=== PATIENT | female | born 1990 | race Caucasian/White ===

== ENCOUNTER 2017-10-21 13:57 | Emergency (ER) | payer BC ==
[~2017-10-21] VITALS: Ht 157.5 cm; Wt 163.3 kg
[~2017-10-21 13:57] MED LIST: DEPO-PROVERA; IBUPROFEN 800800 M1 PO; LIDOCAINE VISC100 M1 MM; NORCO 5-325 TA1 EACH PO; PENICILLIN V P500 MG; PHENERGAN-CODE120 ML PO; PROAIR HFA8.5 GM PO; TESSALON PERLE100 MG PO; TRILEPTAL600 MG; ZOFRAN ODT4 MG PO; birth control PO
[2017-10-21] MEDS ORDERED: ZPAK PO (14:26)
[2017-10-21] MEDS ORDERED: TESSALON PERLE100 MG PO (14:26)
[2017-10-21] MEDS ORDERED: PROAIR HFA8.5 GM INH (14:26)
[2017-10-21 14:40] VITALS: BP 112/59
[2017-10-22] MEDS ORDERED: PREDNISONE 20 M20 M1 PO (22:45)
[2017-10-22] MEDS ORDERED: ZOFRAN4 MG PO (23:16)
== END 2017-10-21 14:42 | disposition home or self-care (01) ==
LOC: M.ERS 13:57
DX: J18.8 Other pneumonia, unspecified organism (principal); F31.9 Bipolar disorder, unspecified; F90.9 Attention-deficit hyperactivity disorder, unspecified type; J45.909 Unspecified asthma, uncomplicated; F17.200 Nicotine dependence, unspecified, uncomplicated

== ENCOUNTER 2017-10-22 21:05 | Emergency (ER) | payer BC ==
[~2017-10-22] VITALS: Ht 157.5 cm; Wt 90.7 kg
[~2017-10-22 21:05] MED LIST changes: +PROAIR HFA8.5 GM INH; +ZPAK PO
[2017-10-22 22:03] LABS: ABSOLUTE BASOPHILS 0.1 thou/uL (0.0-0.2); ABSOLUTE EOSINOPHILS 0.3 thou/uL (0.0-0.7); ABSOLUTE LYMPHOCYTES 2.7 thou/uL (0.8-5.3); ABSOLUTE MONOCYTES 0.8 thou/uL (0.0-1.2); ABSOLUTE NEUTROPHILS 3.4 thou/uL (1.6-8.1); BASOPHILS 0.8 %; EOSINOPHILS 3.7 %; HEMATOCRIT 45.4 % (37.0-47.0); HEMOGLOBIN 15.5 gm/dL (12.0-15.0); LYMPHOCYTES 37.4 %; MCH 31.8 pg (26.0-34.0); MCHC 34.1 g/dL (28.0-37.0); MCV 93.2 fL (80.0-100.0); MONOCYTES 11.6 %; MPV 7.7 fl. (7.2-11.1); NUCLEATED RBCS 0 /100WBC; PLATELET COUNT* 193 thou/uL (150-400); POLYS 46.5 %; RBC 4.87 mil/uL (4.20-5.00); WBC 7.3 thou/uL (4.0-11.0)
[2017-10-22 22:09] LABS: CALCIUM 8.9 mg/dL (8.5-10.1); CREATININE 0.8 mg/dL (0.6-1.3); POTASSIUM 4.6 mmol/L (3.5-5.1)
[2017-10-22 22:13] LABS: ALBUMIN 3.4 g/dL (3.4-5.0); TOTAL BILIRUBIN 0.2 mg/dL (<0.1-1.0); TOTAL PROTEIN 7.3 g/dL (6.4-8.2)
[2017-10-22 22:36] LABS: INFLUENZA A ANTIGEN None Detected (None Detect)
[2017-10-22] MEDS ORDERED: PREDNISONE 20 M20 M1 PO (22:45)
[2017-10-22] MEDS ORDERED: ZOFRAN4 MG PO (23:16)
[2017-10-22 23:24] VITALS: BP 129/59
== END 2017-10-22 23:27 | disposition home or self-care (01) ==
LOC: M.ERS 21:05
PROVIDERS: Nurse Practitioner Family
DX: J10.1 Influenza due to other identified influenza virus with other respiratory manifestations (principal); J45.909 Unspecified asthma, uncomplicated; F31.9 Bipolar disorder, unspecified; F90.9 Attention-deficit hyperactivity disorder, unspecified type

== ENCOUNTER 2018-07-04 14:34 | Emergency (ER) | payer BC ==
[~2018-07-04] VITALS: Ht 157.5 cm; Wt 121.1 kg
[~2018-07-04 14:34] MED LIST changes: +PREDNISONE 20 M20 M1 PO; +ZOFRAN4 MG PO
[2018-07-04 15:30] LABS: ABSOLUTE BASOPHILS 0.1 thou/uL (0.0-0.2); ABSOLUTE EOSINOPHILS 0.4 thou/uL (0.0-0.7); ABSOLUTE MONOCYTES 0.9 thou/uL (0.0-1.2); ABSOLUTE NEUTROPHILS 6.7 thou/uL (1.6-8.1); BASOPHILS 0.5 %; EOSINOPHILS 4.2 %; HEMATOCRIT 46.4 % (37.0-47.0); HEMOGLOBIN 16.2 gm/dL (12.0-15.0); MCH 31.9 pg (26.0-34.0); MCHC 34.8 g/dL (28.0-37.0); MCV 91.8 fL (80.0-100.0); MONOCYTES 9.2 %; MPV 7.4 fl. (7.2-11.1); NUCLEATED RBCS 0 /100WBC; PLATELET COUNT* 273 thou/uL (150-400); POLYS 66.1 %; RBC 5.06 mil/uL (4.20-5.00); RDW-CV 12.2 % (10.5-14.5); WBC 10.2 thou/uL (4.0-11.0)
[2018-07-04 15:58] LABS: ALBUMIN 3.5 g/dL (3.4-5.0); CALCIUM 8.8 mg/dL (8.5-10.1); CREATININE 0.9 mg/dL (0.6-1.3); POTASSIUM 3.5 mmol/L (3.5-5.1); TOTAL BILIRUBIN 0.3 mg/dL (<0.1-1.0); TOTAL PROTEIN 7.8 g/dL (6.4-8.2)
[2018-07-04 16:16] LABS: URINE BILIRUBIN NEGATIVE (Negative); URINE BLOOD 1+ (Negative); URINE CLARITY CLEAR; URINE COLOR YELLOW; URINE GLUCOSE-RANDOM NEGATIVE (Negative); URINE KETONES NEGATIVE (Negative); URINE LEUKOCYTES-REFLEX NEGATIVE (Negative); URINE NITRITE-REFLEX NEGATIVE (Negative); URINE PROTEIN NEGATIVE (Negative); URINE SPECIFIC GRAVITY 1.025 (1.005-1.030)
[2018-07-04 16:22] LABS: CASTS None Seen /LPF (None Seen); CRYSTALS None Seen /LPF (None Seen); MUCUS 4-6 Moderate strn/LPF (None Seen); SQUAMOUS >10 Many /LPF (0-3)
[2018-07-04 16:23] LABS: URINE RBC 0-2 Rare /HPF (0-2); URINE WBC-REFLEX 0-5 Rare /HPF (0-5)
[2018-07-04] MEDS ORDERED: MIRALAX17 GM PO (17:37)
[2018-07-04] MEDS ORDERED: COLACE100 MG PO (17:37)
== END 2018-07-04 16:01 | disposition home or self-care (01) ==
LOC: M.ERS 14:34
PROVIDERS: Nurse Practitioner Family
DX: K59.00 Constipation, unspecified (principal); K62.89 Other specified diseases of anus and rectum; F31.9 Bipolar disorder, unspecified; F90.9 Attention-deficit hyperactivity disorder, unspecified type; J45.909 Unspecified asthma, uncomplicated